=== PATIENT | female | born 1960 | race Caucasian/White ===

== ENCOUNTER 2023-12-01 22:15 | Emergency (ER) | payer MEDICARE, MEDICAID ==
[~2023-12-01] VITALS: Ht 157.5 cm; Wt 56.8 kg
[2023-12-01 22:44] VITALS: TEMP 97.8
[2023-12-02 01:34] LABS: BASOPHILS % (AUTO) 0.3 % (0.0-2.0); EOSINOPHILS % (AUTO) 0.1 % (1.0-6.0); HEMATOCRIT 41.8 % (36-46); LYMPHOCYTES # (AUTO) 0.3 K/uL (1.0-4.8); MEAN CORPUSCULAR HEMOGLOBIN 31.4 pg (26.0-34.0); MEAN CORPUSCULAR HGB CONC 33.4 G/dL (31.0-37.0); MEAN CORPUSCULAR VOLUME 94 fL (80-100); MONOCYTES # (AUTO) 0.5 K/uL (0.1-1.0); MONOCYTES % (AUTO) 3.5 % (2.0-9.0); NEUTROPHILS # (AUTO) 14.7 K/uL (1.8-7.7); PLATELET COUNT (AUTO) 312 K/uL (150-450); RED BLOOD CELL COUNT(AUTO) 4.45 MIL/uL (4.00-5.20); RED CELL DISTRIBUTION WIDTH 12.8 % (11.5-14.5); WHITE BLOOD COUNT (AUTO) 15.6 K/uL (4.5-11.0)
[2023-12-02 01:35] LABS: NEUTROPHILS % (AUTO) 94.1 % (40.0-70.0)
[2023-12-02] MEDS: SODIUM CHLORIDE 0.9% 1,000 ML IV ONE (01:35)
[2023-12-02] MEDS: ONDANSETRON HCL 4 MG/2 ML VIAL IVP ONE (01:35)
[2023-12-02 01:41] LABS: ANION GAP 9 mmol/L (8-16); CALCIUM, TOTAL 8.5 mg/dL (8.8-10.5); CARBON DIOXIDE 27 mmol/L (22-29); CHLORIDE 101 mmol/L (98-107); CREATININE 0.82 mg/dL (0.60-1.30); GLOMERULAR FILTR. RATE CALC > 60 mL/min (>60); GLUCOSE,RANDOM 144 mg/dL (70-110); POTASSIUM 3.8 mmol/L (3.5-5.1); SODIUM SERUM 137 mmol/L (136-145); UREA NITROGEN, BLOOD 19 mg/dL (7-18)
[2023-12-02 01:48] LABS: LACTIC ACID 1.8 mmol/L (0.4-2.0)
[2023-12-02 01:55] LABS: ALANINE AMINOTRANSFERASE 31 U/L (12-78); ALBUMIN 4.1 g/dL (3.4-5.0); ALKALINE PHOSPHATASE 65 U/L (46-116); ASPARTATE AMINOTRANSFERASE 32 U/L (15-37); BILIRUBIN,TOTAL 0.3 mg/dL (0.1-1.0); LIPASE 42 U/L (16-77)
[2023-12-02 02:02] LABS: TROPONIN I-HIGH SENSITIVITY Less Than 4 ng/L (<51)
[2023-12-02 02:06] LABS: RBC MORPHOLOGY COMMENT NORMAL RBC MORPH
[2023-12-02] MEDS ORDERED: PENI500T2 PO (02:53)
[2023-12-02] MEDS: ONDANSETRON HCL 4 MG TABLET PO ONE (02:59)
[2023-12-02] MEDS ORDERED: ONDA-104 PO (03:12)
[2023-12-02 03:28] VITALS: BP 125/72; PULSE 72; RESP 20
== END 2023-12-02 03:45 | disposition home or self-care (01) ==
LOC: EMS 22:21
DX: S61.255A Open bite of left ring finger without damage to nail, initial encounter (principal); K29.00 Acute gastritis without bleeding; B96.89 Other specified bacterial agents as the cause of diseases classified elsewhere; Z88.2 Allergy status to sulfonamides; Z88.8 Allergy status to other drugs, medicaments and biological substances; W54.0XXA Bitten by dog, initial encounter; Y93.89 Activity, other specified; Y92.89 Other specified places as the place of occurrence of the external cause; Y99.8 Other external cause status
CPT/HCPCS: 99285; 80053; 83605; 83690; 84484; 85025; 36415; 96374; 71045; 96361; 93005; J2405; Q0162; J7030